=== PATIENT | male | born 1960 | race African-American/Black ===

== ENCOUNTER 2018-01-08 14:35 | Day surgery (SDC) | payer MEDICARE, OTHER ==
[2018-01-08] MEDS ORDERED: PROPOFOL 80 ML (16:26)
== END 2018-01-08 16:44 | disposition home or self-care (01) ==
LOC: GIL 14:35
DX: Z12.11 Encounter for screening for malignant neoplasm of colon (principal); K29.50 Unspecified chronic gastritis without bleeding; K29.60 Other gastritis without bleeding; K64.8 Other hemorrhoids
CPT/HCPCS: 43239; 88305; 88312